=== PATIENT | male | born 1970 | race African-American/Black ===

== ENCOUNTER 2018-01-09 22:03 | Emergency (ER) | payer BC ==
[~2018-01-09] VITALS: Ht 190.5 cm; Wt 152.8 kg
[2018-01-09 23:22] LABS: HEMATOCRIT 43.5 % (38.0-50.0); MCH 29.8 PG (29.0-34.0); MCHC 34.5 G/DL (30.0-36.0); MCV 86.3 FL (86-99); PLATELET COUNT 182 K/uL (156-360); RBC DIS.WIDTH-CV 13.8 % (11.8-14.6); RBC DIS.WIDTH-SD 43.9 % (39-53); RED BLOOD COUNT 5.04 M/uL (4.00-5.50); WHITE BLOOD COUNT 5.2 K/uL (4.1-10.2)
[2018-01-09 23:44] LABS: TROP-I INTERPRETATION NEGATIVE; TROPONIN-I < 0.01 ng/mL (0.0-0.30)
[2018-01-09 23:54] LABS: ALBUMIN 4.4 g/dL (3.2-4.8); CHLORIDE 104 mEq/L (99-109); POTASSIUM 4.4 mEq/L (3.7-5.4); SODIUM 138 mEq/L (136-147)
[2018-01-09 23:55] LABS: MAGNESIUM 2.5 mg/dL (1.3-2.7)
[2018-01-09 23:57] LABS: GLUCOSE 112 mg/dL (70-99); TOTAL PROTEIN 7.5 g/dL (6.4-8.3)
[2018-01-09 23:58] LABS: TOTAL BILIRUBIN 0.3 mg/dL (0.0-1.0)
[2018-01-10] LABS: ALKALINE PHOSPHATASE 62 IU/L (3-129); CREATININE 1.1 mg/dL (0.6-1.3); GFR ESTIMATE (CALCULATED) > 59 mL/min/ (58.99-99999)
[2018-01-10 00:01] LABS: UREA NITROGEN (BUN) 14 mg/dL (9-23)
[2018-01-10 00:02] LABS: AST (GOT) 26 IU/L (2-34); DIRECT BILIRUBIN 0.1 mg/dL (0.0-0.3)
[2018-01-10 00:03] LABS: ALT (GPT) 38 IU/L (3-49)
[2018-01-10 00:04] LABS: LIPASE 54 U/L (1.0-51.0)
[2018-01-10 01:32] LABS: TROP-I INTERPRETATION NEGATIVE; TROPONIN-I < 0.01 ng/mL (0.0-0.30)
[2018-01-10 02:00] VITALS: BP 120/87
== END 2018-01-10 02:35 | disposition home or self-care (01) ==
LOC: EME 22:03
PROVIDERS: Emergency Medicine
DX: R00.2 Palpitations (principal); I49.3 Ventricular premature depolarization; I44.0 Atrioventricular block, first degree; I10 Essential (primary) hypertension; E78.5 Hyperlipidemia, unspecified; E11.9 Type 2 diabetes mellitus without complications; I25.10 Atherosclerotic heart disease of native coronary artery without angina pectoris; F17.200 Nicotine dependence, unspecified, uncomplicated; Z88.1 Allergy status to other antibiotic agents
CPT/HCPCS: 71046; 80048; 80076; 83690; 83735; 84484; 85027; 93005; 99281; 99285; S0028